=== PATIENT | female | born 1980 ===

== ENCOUNTER 2021-03-08 22:57 | Emergency (ER) | payer SELFPAY ==
[2021-03-08] MEDS ORDERED: FOLIC ACID IV ONE (23:22)
[2021-03-08] MEDS ORDERED: [UNRECOGNIZED DRUG - OTHER] IV ONE (23:22)
[2021-03-08] MEDS ORDERED: MULTIPLE VITAMIN IV ONE (23:22)
[2021-03-08] MEDS ORDERED: MAGNESIUM SULFATE 2 GM/50 ML BAG IV ONE (23:22)
[2021-03-08] MEDS ORDERED: THIAMINE IV ONE (23:22)
--- NOTE | 2021-03-08 23:27 | Emergency Department Report ---
HPI - HPI HPI: Room 25 The patient is a 41-year-old female present with a chief complaint of alcoholism. The patient states "my ex brought me here to stop drinking." Patient admits to daily alcohol consumption stating she drinks approximately 2-3 shots daily. Patient states her last consumption was today. <NNEKA THOMPSON - Last Filed: 03/09/21 05:56> <CARRINGTON LUNA - Last Filed: 03/09/21 06:37> - General Chief Complaint: Alcohol Time Seen by Provider: 03/08/21 23:17 ED Past Medical Hx - Past Medical History Previous Medical History?: Yes Hx Hypertension: Yes Hx Diabetes: Yes (type 2) Hx Psychiatric Treatment: Yes (Depression, anxiety) - Surgical History Past Surgical History?: No Additional Surgical History: - Family History Family history: no significant - Social History Smoking Status: Never Smoker Substance Use Type: None (Denies illicit drug use), Alcohol (2-3 shots of alcohol daily) <NNEKA THOMPSON - Last Filed: 03/09/21 05:56> ED Review of Systems ROS: Stated complaint: DETOX Other details as noted in HPI Constitutional: no symptoms reported Eyes: denies: eye pain ENT: denies: throat pain Respiratory: no symptoms reported Cardiovascular: denies: chest pain Endocrine: no symptoms reported Gastrointestinal: denies: abdominal pain Genitourinary: denies: dysuria Musculoskeletal: denies: back pain Neurological: denies: headache <NNEKA THOMPSON - Last Filed: 03/09/21 05:56> ROS: Stated complaint: DETOX Other details as noted in HPI <CARRINGTON LUNA - Last Filed: 03/09/21 06:37> Physical Exam - Physical Exam Vital Signs: Vital Signs 03/08/21 23:03 Temperature 98.3 F Pulse Rate 97 H Respiratory 99 H Rate Blood Pressure 118/60 [Right] O2 Sat by Pulse 16 L Oximetry Vital Signs 03/08/21 03/08/21 03/09/21 23:03 23:46 00:00 Temperature 98.3 F Pulse Rate 97 H 93 H Respiratory 99 H 16 20 Rate Blood Pressure 113/68 Blood Pressure 118/60 [Right] O2 Sat by Pulse 16 L 93 Oximetry 03/09/21 03/09/2103/09/21 01:15 01:31 02:00 Temperature Pulse Rate 91 H 98 H Respiratory 19 20 19 Rate Blood Pressure 113/68 113/68 100/49 Blood Pressure [Right] O2 Sat by Pulse 92 94 91 Oximetry 03/09/21 03/09/21 03/09/21 02:30 03:00 03:15 Temperature Pulse Rate 95 H 96 H 95 H Respiratory 18 19 18 Rate Blood Pressure 95/42 96/50 96/50 Blood Pressure [Right] O2 Sat by Pulse 91 87 87 Oximetry 03/09/21 03/09/21 03/09/21 03:30 03:45 04:00 Temperature 98.3 F Pulse Rate 97 H Respiratory 14 14 Rate Blood Pressure 91/42 119/54 133/69 Blood Pressure 133/69 [Right] O2 Sat by Pulse 91 93 89 Oximetry Physical Exam: GENERAL: The patient is well-developed well-nourished female sleeping on stretcher not appearing to be in acute distress; awakens to light touch. [] HEENT: Normocephalic. Atraumatic. Extraocular motions are intact. Patient has moist mucous membranes. NECK: Supple. Trachea mid CHEST/LUNGS: Clear to auscultation. There is no respiratory distress noted. HEART/CARDIOVASCULAR: Regular. There is no tachycardia. There is no gallop rub or murmur. ABDOMEN: Abdomen is soft, nontender. Patient has normal bowel sounds. There is no abdominal distention. SKIN: There is no rash. There is no edema. There is no diaphoresis. NEURO: The patient is awake, alert, and oriented. The patient is cooperative. The patient has no focal neurologic deficits. The patient has normal speech. GCS 14 MUSCULOSKELETAL: There is no evidence of acute injury. <NNEKA THOMPSON - Last Filed: 03/09/21 05:56> - Physical Exam Vital Signs: Vital Signs 03/08/21 03/08/21 03/09/21 23:03 23:46 00:00 Temperature 98.3 F Pulse Rate 97 H 93 H Respiratory 99 H 16 20 Rate Blood Pressure 113/68 Blood Pressure 118/60 [Right] O2 Sat by Pulse 16 L 93 Oximetry 03/09/21 03/09/21 03/09/21 01:15 01:31 02:00 Temperature Pulse Rate 91 H 98 H Respiratory 19 20 19 Rate Blood Pressure 113/68 113/68 100/49 Blood Pressure [Right] O2 Sat by Pulse 92 94 91 Oximetry 03/09/21 03/09/21 03/09/21 02:30 03:00 03:15 Temperature Pulse Rate 95 H 96 H 95 H Respiratory 18 19 18 Rate Blood Pressure 95/42 96/50 96/50 Blood Pressure [Right] O2 Sat by Pulse 91 87 87 Oximetry 03/09/21 03/09/21 03/09/21 03:30 03:45 04:00 Temperature 98.3 F Pulse Rate 97 H Respiratory 14 14 Rate Blood Pressure 91/42 119/54 133/69 Blood Pressure 133/69 [Right] O2 Sat by Pulse 91 93 89 Oximetry 03/09/21 03/09/21 03/09/21 04:15 04:30 04:45 Temperature Pulse Rate Respiratory Rate Blood Pressure 133/69 108/65 108/65 Blood Pressure [Right] O2 Sat by Pulse 95 95 95 Oximetry 03/09/21 03/09/21 03/09/21 05:00 05:30 05:45 Temperature Pulse Rate Respiratory Rate Blood Pressure 100/55 120/73 120/73 Blood Pressure [Right] O2 Sat by Pulse 93 88 93 Oximetry 03/09/21 03/09/21 06:00 06:15 Temperature Pulse Rate Respiratory Rate Blood Pressure 96/59 96/59 Blood Pressure [Right] O2 Sat by Pulse 94 92 Oximetry <CARRINGTON LUNA - Last Filed: 03/09/21 06:37> ED Course Vital Signs 03/08/21 23:03 Temperature 98.3 F Pulse Rate 97 H Respiratory 99 H Rate Blood Pressure 118/60 [Right] O2 Sat by Pulse 16 L Oximetry <NNEKA THOMPSON - Last Filed: 03/09/21 05:56> Vital Signs 03/08/21 03/08/21 03/09/21 23:03 23:46 00:00 Temperature 98.3 F Pulse Rate 97 H 93 H Respiratory 99 H 16 20 Rate Blood Pressure 113/68 Blood Pressure 118/60 [Right] O2 Sat by Pulse 16 L 93 Oximetry 03/09/21 03/09/21 03/09/21 01:15 01:31 02:00 Temperature Pulse Rate 91 H 98 H Respiratory 19 20 19 Rate Blood Pressure 113/68 113/68 100/49 Blood Pressure [Right] O2 Sat by Pulse 92 94 91 Oximetry 03/09/21 03/09/21 03/09/21 02:30 03:00 03:15 Temperature Pulse Rate 95 H 96 H 95 H Respiratory 18 19 18 Rate Blood Pressure 95/42 96/50 96/50 Blood Pressure [Right] O2 Sat by Pulse 91 87 87 Oximetry 03/09/21 03/09/21 03/09/21 03:30 03:45 04:00 Temperature 98.3 F Pulse Rate 97 H Respiratory 14 14 Rate Blood Pressure 91/42 119/54 133/69 Blood Pressure 133/69 [Right] O2 Sat by Pulse 91 93 89 Oximetry 03/09/21 03/09/21 03/09/21 04:15 04:30 04:45 Temperature Pulse Rate Respiratory Rate Blood Pressure 133/69 108/65 108/65 Blood Pressure [Right] O2 Sat by Pulse 95 95 95 Oximetry 03/09/21 03/09/21 03/09/21 05:00 05:30 05:45 Temperature Pulse Rate Respiratory Rate Blood Pressure 100/55 120/73 120/73 Blood Pressure [Right] O2 Sat by Pulse 93 88 93 Oximetry 03/09/21 03/09/21 06:00 06:15 Temperature Pulse Rate Respiratory Rate Blood Pressure 96/59 96/59 Blood Pressure [Right] O2 Sat by Pulse 94 92 Oximetry - Reevaluation(s) Reevaluation #1: 03/09/21 06:35 Patient is currently calm and cooperative. Speech is clear. Gait is normal with ambulation. There is an order for mental health evaluation for detox. However, patient states she does not want alcohol detox at this time. She denies any SI, HI, hallucinations. Patient will be discharged at this time with resources for substance abuse programs. <CARRINGTON LUNA - Last Filed: 03/09/21 06:37> ED Medical Decision Making - Lab Data Result diagrams: 03/08/21 23:55 03/08/21 23:55 - Differential Diagnosis Alcohol abuse <NNEKA THOMPSON - Last Filed: 03/09/21 05:56> - Lab Data Result diagrams: 03/08/21 23:55 03/08/21 23:55 <CARRINGTON LUNA - Last Filed: 03/09/21 06:37> Critical care attestation.: If time is entered above; I have spent that time in minutes in the direct care of this critically ill patient, excluding procedure time. <NNEKA THOMPSON - Last Filed: 03/09/21 05:56> Critical care attestation.: If time is entered above; I have spent that time in minutes in the direct care of this critically ill patient, excluding procedure time. <CARRINGTON LUNA - Last Filed: 03/09/21 06:37> ED Disposition <NNEKA THOMPSON - Last Filed: 03/09/21 05:56> Is pt being admited?: No Time of Disposition: 06:36 <CARRINGTON LUNA - Last Filed: 03/09/21 06:37> Clinical Impression: Alcohol intoxication Disposition: 01 HOME / SELF CARE / HOMELESS Condition: Stable Instructions: Alcohol Use Disorder Referrals: PRIMARY CARE, [Primary Care Provider] - 3-5 Days [facility] [Provider Group] - 3-5 Days
[2021-03-09 00:22] LABS: Basophils # (Auto) 0.1 K/mm3 (0.0-0.1); Basophils % (Auto) 0.8 % (0.0-1.8); Eosinophils # (Auto) 0.1 K/mm3 (0.0-0.4); Eosinophils % (Auto) 1.2 % (0.0-4.3); Hemoglobin 10.1 gm/dl (10.1-14.3); Lymphocytes # (Auto) 3.4 K/mm3 (1.2-5.4); Lymphocytes % (Auto) 41.5 % (13.4-35.0); Mean Corpuscular HGB Conc 32 % (30-34); Mean Corpuscular Volume 73 fl (79-97); Monocytes # (Auto) 0.6 K/mm3 (0.0-0.8); Monocytes % (Auto) 6.8 % (0.0-7.3); Platelet Count 310 K/mm3 (140-440); Red Blood Count 4.37 M/mm3 (3.65-5.03); Red Cell Distribution Width 20.6 % (13.2-15.2)
[2021-03-09 00:34] LABS: Alanine Aminotransferase 53 units/L (7-56); Albumin 4.1 g/dL (3.9-5); BUN/Creatinine Ratio 15; Blood Urea Nitrogen 12 mg/dL (7-17); Calcium 8.4 mg/dL (8.4-10.2); Hemolysis Index 3
[2021-03-09] MEDS ORDERED: ONDANSETRON 4 MG/2 ML INJ ONE (04:10)
[2021-03-09] MEDS ORDERED: ONDANSETRON 4 MG/2 ML INJ IV ONE (04:45)
[2021-03-09 04:57] LABS: Bilirubin,Urine NEG (Negative); Blood,Urine NEG (Negative); Color,Urine Yellow (Yellow); Protein,Urine <15 mg/dL mg/dL (Negative); Urobilinogen,Urine < 2.0 mg/dL (<2.0)
[2021-03-09 04:59] LABS: Amphetamine Screen,Urine Negative; Cannabinoid Screen,Urine Negative; Cocaine Screen,Urine Negative; Methadone Screen,Urine Negative; Opiate Screen,Urine Negative
[2021-03-09 05:23] LABS: Benzodiazepines Screen,Urine Positive
[2021-03-09] MEDS ORDERED: LORazepam 2 MG/ML VIAL IV PRN (05:51)
[2021-03-09] MEDS ORDERED: LORazepam 2 MG TAB PO PRN ×2 (05:51)
[2021-03-09 06:51] VITALS: BP 139/74
== END 2021-03-09 06:44 | disposition home or self-care (01) ==
LOC: EDBD → ED 22:57
DX: F10.129 Alcohol abuse with intoxication, unspecified (principal); I10 Essential (primary) hypertension; E11.9 Type 2 diabetes mellitus without complications; F32.9 Major depressive disorder, single episode, unspecified; F41.9 Anxiety disorder, unspecified; Z98.890 Other specified postprocedural states; Z88.8 Allergy status to other drugs, medicaments and biological substances; Z79.899 Other long term (current) drug therapy; Y90.9 Presence of alcohol in blood, level not specified
CPT/HCPCS: 36415; 80053; 80307; 81001; 85025; 96365; 96366; 96375; 99284; J2405; J3411; J3475; J7030; 80320; G0480

== ENCOUNTER 2021-03-09 22:21 | Emergency (ER) | payer OTHER ==
[2021-03-10] MEDS ORDERED: chlordiazePOXIDE 25 MG CAP PO PRN ×2 (00:25)
[2021-03-10] MEDS ORDERED: LORazepam 2 MG TAB PO PRN ×2 (00:25)
[2021-03-10] MEDS ORDERED: MULTIVITAMINS ,THERAPEUTIC TAB PO ONE (00:25)
[2021-03-10] MEDS ORDERED: METOCLOPRAMIDE 10 MG TAB PO ONE (00:25)
--- NOTE | 2021-03-10 00:27 | Emergency Department Report ---
ED General Adult HPI - General Chief complaint: Medical Clearance Stated complaint: Medical clearance PUI?: No Time Seen by Provider: 03/09/21 23:52 Source: patient, RN notes reviewed, old records reviewed Mode of arrival: Ambulatory Limitations: Other (Alcohol intoxication) - History of Present Illness Initial comments: The patient is a 40-year-old female. She is not known to myself previously. She was seen in this department within the past 24 hours for alcohol intoxication. She had a thorough laboratory evaluation, was medically cleared, and discharged when clinically sober. When discharged, she went home, and had a few more drinks. She then presented for detox, and was found to have an elevated blood alcohol level, and was referred to the emergency room for medical clearance. The patient denies physical pain. She denies homicidality and suicidality. She states that she is nauseous. She states she did not fall or hit her head. She reports that her friend drove her here to the emergency room. She is currently asking for crackers of her something to eat and drink. She states that she is not . She states she has a history of anxiety and depression. To the best of her recollection, she does not have a history of alcohol withdrawal seizures. Her primary complaints in terms of presenting to the emergency room is for medical clearance to go to detox. Associated Symptoms: denies other symptoms, other (Nausea. No vomiting) - Related Data Previous Rx's Medication Instructions Recorded Last Taken Type Metoclopramide [Reglan] 10 mg PO QID PRN #30 tablet 03/10/21 Unknown Rx Multivitamin with Folic Acid [[facility] 400 mcg PO QDAY #30 tablet 03/10/21 Unknown Rx One Daily Essential Tablet] chlordiazePOXIDE [Librium] 25 mg PO Q6H PRN #25 capsule 03/10/21 Unknown Rx Allergies Allergy/AdvReac Type Severity Reaction Status Date / Time prednisone AdvReac Hives Verified 03/09/21 00:52 ED Review of Systems ROS: Stated complaint: DETOX Other details as noted in HPI Constitutional: denies: fever Eyes: denies: eye discharge ENT: denies: epistaxis Respiratory: denies: cough Cardiovascular: denies: chest pain Gastrointestinal: nausea. denies: abdominal pain, vomiting, hematemesis, melena, hematochezia Genitourinary: denies: dysuria Neurological: denies: weakness Psychiatric: anxiety, depression. denies: auditory hallucinations, visual hallucinations, homicidal thoughts, suicidal thoughts ED Past Medical Hx - Past Medical History Previous Medical History?: Yes Hx Hypertension: Yes Hx Diabetes: Yes (type 2) Hx Psychiatric Treatment: Yes (Depression, anxiety) - Surgical History Past Surgical History?: Yes Additional Surgical History: - Social History Smoking Status: Never Smoker Substance Use Type: None (Denies illicit drug use), Alcohol (2-3 shots of alcohol daily) - Medications Home Medications: Home Medications Medication Instructions Recorded Confirmed Last Taken Type Metoclopramide [Reglan] 10 mg PO QID PRN #30 tablet 03/10/21 Unknown Rx Multivitamin with Folic Acid [[facility] 400 mcg PO QDAY #30 tablet 03/10/21 Unknown Rx One Daily Essential Tablet] chlordiazePOXIDE [Librium] 25 mg PO Q6H PRN #25 capsule 03/10/21 Unknown Rx ED Physical Exam - General General appearance: alert, appears intoxicated - Head Head exam: Present: atraumatic, normocephalic - Eye Eye exam: Present: normal appearance, EOMI. Absent: nystagmus - ENT ENT exam: Present: normal exam, normal orophraynx, mucous membranes moist, normal external ear exam - Neck Neck exam: Present: normal inspection, full ROM. Absent: tenderness, meningismus - Respiratory Respiratory exam: Present: normal lung sounds bilaterally. Absent: respiratory distress, wheezes, rales, rhonchi, stridor, decreased breath sounds - Cardiovascular Cardiovascular Exam: Present: regular rate, normal rhythm, normal heart sounds. Absent: bradycardia, tachycardia, irregular rhythm, systolic murmur, diastolic murmur, rubs, gallop - GI/Abdominal GI/Abdominal exam: Present: soft. Absent: distended, tenderness, guarding, rebound, rigid, pulsatile mass - Extremities Exam Extremities exam: Present: normal inspection, full ROM, other (2+ pulses noted in the bilateral upper and lower extremities. There is no palpable cord. negative Homans sign. Muscular compartments are soft. The pelvis is stable.). Absent: pedal edema, calf tenderness - Back Exam Back exam: Present: normal inspection, full ROM. Absent: tenderness, CVA tenderness (R), CVA tenderness (L), paraspinal tenderness, vertebral tenderness - Neurological Exam Neurological exam: Present: alert, oriented X3, normal gait, other (No facial droop. Tongue midline. Extraocular movements intact bilaterally. Facial sensation intact to light touch in V1, V2, V3 distribution bilaterally. 5 and a 5 strength in 4 extremities. Sensation intact to light touch in 4 extremities.). Absent: motor sensory deficit - Psychiatric Psychiatric exam: Present: normal affect, normal mood. Absent: homicidal ideation, suicidal ideation - Skin Skin exam: Present: warm, dry, intact, normal color. Absent: rash ED Course Vital Signs 03/09/21 03/10/21 03/10/21 23:04 00:14 05:16 Temperature 97.9 F Pulse Rate 80 Respiratory 18 Rate Blood Pressure 139/80 Blood Pressure [Left] O2 Sat by Pulse 92 98 Oximetry O2 Sat by Pulse 98 Oximetry [ Digit-Finger] 03/10/21 05:21 Temperature Pulse Rate 96 H Respiratory 14 Rate Blood Pressure Blood Pressure 132/75 [Left] O2 Sat by Pulse 94 Oximetry O2 Sat by Pulse Oximetry [ Digit-Finger] - Reevaluation(s) Reevaluation #1: 03/10/21 05:16 Patient resting comfortably. No acute distress. Has been observed ambulating with a steady gait. 03/10/21 05:54 Patient in no acute distress. Clinically sober. Suitable for discharge. - Pulse Oximetry Interpretation Digit-Finger Initial Pulse Oximetry Readin O2 Sat by Pulse Oximetry: 98 Actions Taken: none ED Medical Decision Making - Lab Data Result diagrams: 03/10/21 00:34 Vital Signs 03/09/21 03/10/21 23:04 00:14 Temperature 97.9 F Pulse Rate 80 Respiratory 18 Rate Blood Pressure 139/80 O2 Sat by Pulse 92 98 Oximetry Lab Results 03/10/21 03/10/21 03/10/21 Range/Units 00:34 00:34 00:34 Sodium 143 (137-145) mmol/L Potassium 4.3 (3.6-5.0) mmol/L Chloride 106.2 (98-107) mmol/L Carbon Dioxide 21 L (22-30) mmol/L Anion Gap 20 mmol/L BUN 7 (7-17) mg/dL Creatinine 0.7 (0.6-1.2) mg/dL Estimated GFR > 60 ml/min BUN/Creatinine Ratio 10 % Glucose 108 H (65-100) mg/dL Calcium 8.3 L (8.4-10.2) mg/dL Magnesium 2.20 (1.7-2.3) mg/dL Total Creatine Kinase 83 (30-135) units/L HCG, Quant < 2 (0-4) mIU/mL Salicylates < 0.3 L (2.8-20.0) mg/dL Acetaminophen (10.0-30.0) ug/mL Plasma/Serum Alcohol (0-0.07) % 03/10/21 03/10/21 Range/Units 00:34 00:34 Sodium (137-145) mmol/L Potassium (3.6-5.0) mmol/L Chloride (98-107) mmol/L Carbon Dioxide (22-30) mmol/L Anion Gap mmol/L BUN (7-17) mg/dL Creatinine (0.6-1.2) mg/dL Estimated GFR ml/min BUN/Creatinine Ratio % Glucose (65-100) mg/dL Calcium (8.4-10.2) mg/dL Magnesium (1.7-2.3) mg/dL Total Creatine Kinase (30-135) units/L HCG, Quant (0-4) mIU/mL Salicylates (2.8-20.0) mg/dL Acetaminophen 5.0 L (10.0-30.0) ug/mL Plasma/Serum Alcohol 0.24 H (0-0.07) % - Medical Decision Making Differential diagnosis, including but not limited to: Encounter for medical screening examination, encounter for behavioral health screening examination, alcohol dependence, alcohol intoxication Assessment and plan: 40-year-old female, who was afebrile, with reassuring vital signs, who walks with a steady gait, who is clinically intoxicated, but does not meet criteria for 1013 hold or involuntary hold, who to me, denies headache, neck pain, chest pain, abdominal pain, shortness of breath, reports nausea but is not vomiting, is eating and drinking without difficulty, saturating 98% on room air on my personal examination, presenting for medical clearance for detox. Laboratory studies were performed within the past 24 hours, they are reviewed and appreciated. I have repeated basic metabolic panel, hCG, serum toxicology study, which are unremarkable, with the exception of elevated blood alcohol level. At the moment, the patient is resting comfortably in stretcher, with no active vomiting or distress. It is currently 217 in the morning, and she is not able to secure a ride, or have a sober adult come by and pick her up. Patient states that somebody can pick her up at or around 6:00 AM. In addition, we anticipate clinical sobriety by then. At this point time, this patient does not appear to have an immediate medical contraindication which would preclude outpatient detox therapy. Discharge when clinically sober, or when a sober adult can come by and pick her up Critical care attestation.: If time is entered above; I have spent that time in minutes in the direct care of this critically ill patient, excluding procedure time. ED Disposition Clinical Impression: Alcohol intoxication, Encounter for medical screening examination, Encounter for behavioral health screening Disposition: 01 HOME / SELF CARE / HOMELESS Is pt being admited?: No Does the pt Need Aspirin: No Condition: Good Additional Instructions: The patient does not appear to have an immediate medical contraindication at this time to outpatient detox therapy and rehabilitation. No emergent medical condition was identified during the patient's emergency room evaluation. Recommend that the patient gradually taper and discontinue/decrease alcohol consumption. Long-term consumption of alcohol may cause organ damage, addiction, disability, , paralysis, and loss of quality of life. Advance diet as tolerated, avoid consumption of Motrin, ibuprofen, Naprosyn, Aleve, tobacco and smoke products, heavy and spicy foods. Take the Reglan medication as needed for nausea and vomiting. Take the multivitamin on a daily basis. Use the Librium medication as needed for sensation of alcohol withdrawal. Recommend follow-up with a primary care doctor within the next week to 10 days. Please return to the emergency room right away with new pain, worsened pain, migration of pain, projectile vomiting, change in mental status, confusion, homicidality, suicidality, or any new, worsened or different symptoms not present on the initial emergency room evaluation Prescriptions: Multivitamin with Folic Acid [[facility] One Daily Essential Tablet] 400 mcg PO QDAY #3 0 tablet chlordiazePOXIDE [Librium] 25 mg PO Q6H PRN #25 capsule PRN Reason: Alcohol Withdrawal Metoclopramide [Reglan] 10 mg PO QID PRN #30 tablet PRN Reason: Nausea Referrals: [facility] [Outside] - 3-5 Days [facility] [Outside] - 3-5 Days
[2021-03-10 01:09] LABS: Blood Urea Nitrogen 7 mg/dL (7-17); Calcium 8.3 mg/dL (8.4-10.2); Hemolysis Index 5
[2021-03-10 01:53] LABS: BUN/Creatinine Ratio 10
[2021-03-10 05:22] VITALS: BP 132/75
== END 2021-03-10 06:39 | disposition home or self-care (01) ==
LOC: EDBD 22:21 → ED 22:21
DX: Z13.30 Encounter for screening examination for mental health and behavioral disorders, unspecified (principal); Z00.00 Encounter for general adult medical examination without abnormal findings; F10.129 Alcohol abuse with intoxication, unspecified; Z88.8 Allergy status to other drugs, medicaments and biological substances; I10 Essential (primary) hypertension; E11.8 Type 2 diabetes mellitus with unspecified complications; F41.9 Anxiety disorder, unspecified
CPT/HCPCS: 36415; 80048; 80320; 82550; 83735; 84702; 99283; G0480